=== PATIENT | female | born 1990 | race Hispanic/Latino ===

== ENCOUNTER 2018-02-09 07:43 | Day surgery (SDC) | payer OTHER ==
[~2018-02-09 07:43] MED LIST: LIDOCAINE 1% MDV 20ML VIAL SQ
[2018-02-09] MEDS ORDERED: ROCURONIUM BROMIDE 50 MG/5 ML VIAL As Ordered (07:44)
[2018-02-09] MEDS ORDERED: ONDANSETRON 4MG/2ML VIAL (J2405) As Ordered (07:44)
[2018-02-09] MEDS ORDERED: MIDAZOLAM INJ 2 MG/2 ML VIAL (J2250) As Ordered (07:44)
[2018-02-09] MEDS ORDERED: KETOROLAC 60 MG/2 ML VIAL (J1885) As Ordered (07:44)
[2018-02-09] MEDS ORDERED: PROPOFOL 200 MG/20 ML VIAL As Ordered (07:44)
[2018-02-09] MEDS ORDERED: LIDOCAINE 2% INJ 100 MG/5 ML SDV (FOR ANES.) As Ordered (07:44)
[2018-02-09] MEDS ORDERED: dexameTHASONE 4 MG/ML 1ML VIAL (J1100) As Ordered (07:44)
[2018-02-09] MEDS ORDERED: fentaNYL 100 MCG/2 ML INJECTION (J3010) As Ordered (07:44)
[2018-02-09 08:09] LABS: HEMOGLOBIN 13.7 g/dl (12.0-15.5)
[2018-02-09] MEDS: LR 1,000 ML IV (08:10)
[2018-02-09 08:30] LABS: CONTROL LINE HCG INT CTR LINE PRESENT; HCG, SERUM QUALITATIVE NEGATIVE (NEGATIVE)
[2018-02-09] MEDS ORDERED: HYDROmorphone HCL 2 MG/ML 1ML VIAL (J1170) As Ordered (08:54)
[2018-02-09] MEDS ORDERED: GLYCOPYRROLATE INJ 0.2 MG/ML 2 ML VIAL As Ordered ×2 (09:08)
[2018-02-09] MEDS ORDERED: NEOSTIGMINE 10 MG/10 ML VIAL (J2710) As Ordered (09:08)
[2018-02-09] MEDS: BUPIVACAINE HCL 0.25% 30 ML VIAL As Ordered (09:12)
[2018-02-09] MEDS ORDERED: PERCOCET 5MG/325MG TAB PO (10:00)
[2018-02-09] MEDS ORDERED: LR 1,000 ML IV (10:00)
[2018-02-09] MEDS ORDERED: fentaNYL 100 MCG/2 ML INJECTION (J3010) IV (10:00)
[2018-02-09] MEDS ORDERED: ONDANSETRON 4MG/2ML VIAL (J2405) IV (10:00)
== END 2018-02-09 11:17 | disposition home or self-care (01) ==
LOC: M SDC 07:43
DX: Z30.2 Encounter for sterilization (principal); Z72.0 Tobacco use
CPT/HCPCS: 58661

== ENCOUNTER 2020-03-30 00:09 | Inpatient (IN) | payer OTHER ==
[~2020-03-30] VITALS: Ht 160 cm; Wt 75.1 kg
[~2020-03-30 00:09] MED LIST changes: +LEVORA PO; -LIDOCAINE 1% MDV 20ML VIAL SQ; +VITA-243 PO
[2020-03-30 03:14] LABS: HEMATOCRIT 39.1 % (36.0-47.0); HEMOGLOBIN 13.2 g/dl (12.0-15.5); MEAN CORPUSCULAR HEMOGLOBIN 34.7 pg (27.0-33.0); MEAN CORPUSCULAR HGB CONC 33.8 g/dl (32.0-36.5); MEAN CORPUSCULAR VOLUME 102.9 fl (80.0-96.0); PLATELET COUNT, AUTOMATED 175 10^3/uL (150-450); WHITE BLOOD COUNT 6.2 10^3/uL (4.0-10.0)
[2020-03-30 03:35] LABS: AMPHETAMINES LEVEL URINE NEGATIVE (NEGATIVE); BARBITURATES URINE NEGATIVE (NEGATIVE); BENZODIAZEPINES URINE NEGATIVE (NEGATIVE); CANNABINOIDS URINE NEGATIVE (NEGATIVE); COCAINE METABOLITE URINE NEGATIVE (NEGATIVE); METHADONE URINE NEGATIVE (NEGATIVE); OPIATES URINE NEGATIVE (NEGATIVE); PHENCYCLIDINE URINE NEGATIVE (NEGATIVE)
[2020-03-30 03:44] LABS: ACETAMINOPHEN LEVEL < 2.0 UG/ML (10.0-30.0); ALBUMIN 3.4 GM/DL (3.2-5.2); ALT/SGPT 38 U/L (12-78); BILIRUBIN,DIRECT 0.1 MG/DL (0.0-0.2); BILIRUBIN,TOTAL 0.2 MG/DL (0.2-1.0); BLOOD UREA NITROGEN 7 MG/DL (7-18); CARBON DIOXIDE LEVEL 26 MEQ/L (21-32); CHLORIDE LEVEL 111 MEQ/L (98-107); CREATININE FOR GFR 0.55 MG/DL (0.55-1.30); ETHYL ALCOHOL (ETHANOL) 0.295 % (0.000-0.010); GLOMERULAR FILTRATION RATE > 60.0 (>60); GLUCOSE, FASTING 83 MG/DL (70-100); POTASSIUM SERUM 3.7 MEQ/L (3.5-5.1); SODIUM LEVEL 145 MEQ/L (136-145); THYROID STIMULATING HORMONE 0.853 uIU/ML (0.358-3.740); TOTAL PROTEIN 6.7 GM/DL (6.4-8.2)
[2020-03-30] MEDS ORDERED: PROAAER10 INH (16:51)
[2020-03-30] MEDS ORDERED: MOM 30ML SUSPENSION UDC PO PRN (17:15)
[2020-03-30] MEDS ORDERED: LORazepam 2 MG TAB PO PRN (17:15)
[2020-03-30] MEDS ORDERED: ACETAMINOPHEN TAB 650MG DOSE (2X325MG) PO PRN (17:15)
[2020-03-30] MEDS: THIAMINE 100 MG TAB PO SCH (19:55)
[2020-03-30 21:10] VITALS: BP 135/73
[2020-03-30 22:00] VITALS: BP 135/73
[2020-03-30] MEDS: traZODone 50 MG TAB PO PRN (23:46)
[2020-03-31 06:47] VITALS: BP 147/89
[2020-03-31 06:54] VITALS: BP 147/89
[2020-03-31] MEDS: FLUoxetine 10 MG CAP PO SCH (09:00)
[2020-03-31] MEDS: THIAMINE 100 MG TAB PO SCH ×2 (10:03→22:09)
[2020-03-31] MEDS: FOLIC ACID 1 MG TAB PO SCH (10:03)
[2020-03-31] MEDS: MULTIVITAMINS/MINERALS THERAP 1 TAB PO SCH (10:03)
[2020-03-31] MEDS: NICOTINE 21MG/24HR 1 EA TRANSDERMAL TD SCH (10:05)
[2020-03-31 16:00] VITALS: BP 164/100
[2020-03-31] MEDS: IBUPROFEN 400 MG TAB PO PRN (16:56)
[2020-03-31 17:39] VITALS: BP 164/100
[2020-03-31] MEDS: LORazepam 1 MG TAB PO PRN (17:50)
[2020-03-31 18:36] LABS: HCG, SERUM QUALITATIVE NEGATIVE (NEGATIVE)
[2020-03-31 18:57] VITALS: BP 140/100
--- NOTE | 2020-03-31 21:02 | HPEPDOC ---
[facility] Medical History & Physical Date of Admission Mar 30, 2020 Date of Service: Mar 31, 2020 History and Physical CHIEF COMPLAINT: Unspecified depressive disorder HISTORY OF PRESENT ILLNESS: Patient is a 29-year-old female with anxiety and depression who is in the inpatient mental health unit for unspecified depressive disorder. She says that she had a fall a week and a half ago and injured her right fourth finger. She's been following with orthopedic surgery at [place]. Pain is unchanged. Otherwise she has chronic left wrist pain and right arm pain. Her only other concern was her period came early. Bleeding felt heavier than normal. Otherwise, denies fever or chills, lightheadedness or dizziness, chest pain, dyspnea, abdominal pain, or dysuria. PAST MEDICAL HISTORY: 1. Depression/anxiety 2. Asthma. PAST SURGICAL HISTORY: 1. Left wrist surgery 2. [place] tooth pulled. SOCIAL HISTORY: Tobacco use: Right smoker. Smoked for 15 years, about 5 cigarettes a day ETOH: Last alcohol drink was Illicit drug use: Denies FAMILY HISTORY: Father: Medical history unknown to patient Mother: History of high blood pressure, dyslipidemia, diabetes mellitus, depression, bipolar ALLERGIES: Please see below. REVIEW OF SYSTEMS: CONSTITUTIONAL: Denies any fever or chills. Denies lightheadedness or dizziness. ENT: Denies rhinorrhea. Denies sore throat. Denies dysphagia. RESPIRATORY: Denies shortness of breath. Denies cough. CARDIOVASCULAR: Denies chest pain. GASTROINTESTINAL: Denies abdominal pain. Denies diarrhea. Denies constipation GENITOURINARY: Denies dysuria. Reports early period CUTANEOUS: Denies rashes. MUSCULOSKELETAL: Reports pain in the right 4th finger, left wrist, and right arm. All chronic NEUROLOGICAL: Denies neuropathy. HOME MEDICATIONS: Please see below. PHYSICAL EXAMINATION: VITAL SIGNS: Temperature 98, pulse 62, respiratory rate 16, blood pressure 147/89, pulse oximetry 99 % on room air. GENERAL: Comfortable, in no apparent distress. HEENT: Head normocephalic/atraumatic, EOMI, sclera clear. NECK: Supple, no JVD. RESPIRATORY: Lungs clear to auscultation bilaterally, no rales, wheeze or rhonchi. CARDIOVASCULAR: Regular rate and rhythm. ABDOMEN: Soft, nontender, no guarding or rebound tenderness. Normal bowel sounds. MUSCLE SKELETAL: Muscle strength 5/5 in all extremities. NEUROLOGICAL: CN 312 grossly intact, no focal deficits noted. PSYCHOLOGICAL: Normal mood and affect LABORATORY DATA: See below. ASSESSMENT AND PLAN: 1. Unspecified depressive disorder Being managed in the inpatient mental health unit 2. Abnormal uterine bleeding Says that her period arrived early Beta hCG ordered Ordering ultrasound of uterus We'll follow CBC for 2 days and order coag studies for tomorrow morning Would recommend that she follow-up with [facility] outpatient 3. Traumatic injury to right fourth finger Occurred 1-1/2 weeks ago from a fall No change in pain Follows with orthopedic surgery at [facility] 4. Asthma Albuterol as needed Vital Signs Vital Signs Date Time Temp Pulse Resp B/P (MAP) Pulse Ox O2 Delivery O2 Flow Rate FiO2 03/31/20 18:57 72 140/100 (113) 03/31/20 17:39 97.2 16 03/31/20 06:47 99 Room Air Laboratory Data Labs 24H Laboratory Tests 2 03/31/20 17:40: Human Chorionic Gonadotropin, Qual NEGATIVE Home Medications Scheduled PRN Albuterol Sulfate (Proair Hfa) 8.5 Gm Hfa.aer.ad, 2 PUFF INH Q4H PRN for SOB/WHEEZING Allergies Coded Allergies: No Known Allergies (Unverified , 02/01/18) A-FIB/CHADSVASC A-FIB History Current/History of A-Fib/PAF?: No DAJUAN JENKINS DO Mar 31, 2020 21:02
[2020-03-31] MEDS: traZODone 50 MG TAB PO PRN (22:08)
[2020-03-31 22:20] VITALS: BP 149/93
[2020-04-01 06:00] VITALS: BP 135/85
[2020-04-01 07:14] LABS: MEAN CORPUSCULAR HEMOGLOBIN 34.7 pg (27.0-33.0); MEAN CORPUSCULAR HGB CONC 33.3 g/dl (32.0-36.5); PLATELET COUNT, AUTOMATED 196 10^3/uL (150-450); RED BLOOD COUNT 3.46 10^6/uL (4.00-5.40); WHITE BLOOD COUNT 5.2 10^3/uL (4.0-10.0)
[2020-04-01 07:26] LABS: INR 0.94; PROTHROMBIN TIME 12.8 SECONDS (12.5-14.3)
[2020-04-01] MEDS: THIAMINE 100 MG TAB PO SCH ×2 (10:03→21:16)
[2020-04-01] MEDS: FLUoxetine 10 MG CAP PO SCH (10:03)
[2020-04-01] MEDS: NICOTINE 21MG/24HR 1 EA TRANSDERMAL TD SCH (10:03)
[2020-04-01] MEDS: MULTIVITAMINS/MINERALS THERAP 1 TAB PO SCH (10:03)
[2020-04-01] MEDS: FOLIC ACID 1 MG TAB PO SCH (10:03)
--- NOTE | 2020-04-01 12:26 | REP ---
INDICATION: abnormal urterine bleeding COMPARISON: None. TECHNIQUE: Transabdominal pelvic ultrasound followed by transvaginal examination for better evaluation of the endometrium and adnexa with color Doppler evaluation of the ovaries. FINDINGS: Bladder is unremarkable and measures 5.2 x 2.1 x 3.0 cm. Normal anteverted uterus measures 8.4 x 3.8 x 5.1 cm. The endometrial complex measures 6.0 mm thickness. No discrete uterine or endometrial abnormalities are appreciated. Bilateral ovaries are normal in vascularity without evidence for torsion. Right ovary measures 3.3 x 1.7 x 2.9 cm; R I = 0.46. Left ovary measures 3.6 x 2.6 x 2.9 cm and includes 2.7 cm septated likely physiologic cyst/dominant follicle; R I = 0.40. No pelvic fluid or adnexal mass lesion. IMPRESSION: 1. Normal uterus and right ovary. 2. 2.7 cm complex cystic left ovarian lesion likely representing physiologic cyst. Consider re-evaluation in 4-6 weeks if the patient remains symptomatic. <Electronically signed by Blair Valles > 04/01/20 0554
[2020-04-01 12:34] LABS: APPEARANCE, URINE CLOUDY (CLEAR); BACTERIA, URINE AUTO NEGATIVE (NEGATIVE); BILIRUBIN, URINE AUTO NEGATIVE (NEGATIVE); BLOOD, URINE BLOOD 2+ (NEGATIVE); COLOR, URINE AMBER (YELLOW); GLUCOSE, URINE (UA) AUTO NEGATIVE (NEGATIVE); KETONE, URINE AUTO NEGATIVE (NEGATIVE); LEUKOCYTE ESTERASE, URINE AUTO 1+ (NEGATIVE); MUCUS, URINE SMALL (NEGATIVE); NITRITE, URINE AUTO NEGATIVE (NEGATIVE); PROTEIN, URINE AUTO NEGATIVE (NEGATIVE); RBC, URINE AUTO 2 /HPF (0-3); SPECIFIC GRAVITY URINE AUTO 1.019 (1.002-1.035); SQUAMOUS EPITHELIAL CELL UR AU 21 /HPF (0-6); UROBILINOGEN, URINE AUTO 0.2 mg/dL (0.0-2.0); WBC, URINE AUTO 6 /HPF (0-3)
[2020-04-01] MEDS: IBUPROFEN 400 MG TAB PO PRN (13:09)
[2020-04-01] MEDS: LORazepam 1 MG TAB PO PRN ×2 (13:09→18:32)
[2020-04-01 18:24] VITALS: BP 164/106
[2020-04-01 18:29] VITALS: BP 164/106
[2020-04-01 20:40] VITALS: BP 146/98
[2020-04-01] MEDS: traZODone 50 MG TAB PO PRN (21:16)
[2020-04-01 22:00] VITALS: BP 146/98
[2020-04-02 06:54] VITALS: BP 138/84
[2020-04-02 07:27] LABS: HEMATOCRIT 36.3 % (36.0-47.0); HEMOGLOBIN 12.1 g/dl (12.0-15.5); MEAN CORPUSCULAR HEMOGLOBIN 35.1 pg (27.0-33.0); MEAN CORPUSCULAR HGB CONC 33.3 g/dl (32.0-36.5); MEAN CORPUSCULAR VOLUME 105.2 fl (80.0-96.0); PLATELET COUNT, AUTOMATED 226 10^3/uL (150-450); RED BLOOD COUNT 3.45 10^6/uL (4.00-5.40); WHITE BLOOD COUNT 6.2 10^3/uL (4.0-10.0)
[2020-04-02] MEDS: NICOTINE 21MG/24HR 1 EA TRANSDERMAL TD SCH (09:36)
[2020-04-02] MEDS: FLUoxetine 10 MG CAP PO SCH (09:37)
--- NOTE | 2020-04-02 09:47 | MHIPNPDOC ---
[facility] Progress Note Progress Note DATE OF SERVICE: 04/02/20 Subjective HPI: Abril presents today for follow-up, she has been reporting that she has been feeling less down and has been engaging more in groups over the weekend. MEDICATIONS: Patient reports that she feels the Prozac validates her feelings of depression and loss. SOCIAL HISTORY - SUBSTANCE USE: Patient is consistently focused that she is not an alcoholic. Objective Appearance: Appears to be stated age. Well nourished. Hygiene - Fair. Behavior: Mildly irritable. Cooperative with good eye contact. Engaged. Speech: Normal rate. Spontaneous and Fluid. Normal volume. Thought Content: No thoughts of self harm. No evidence of suicidal ideation. No evidence of aggressive or homicidal ideation. No evidence of delusions. Judgement: Poor - Fair. Insight: Poor - Fair. Assessment F33.9 Major depressive disorder, recurrent, unspecified Plan Continue Prozac, will attempt to convert to voluntary. Appears the patient is ambivalent about going to long-term care despite her statements. See about chain of command discussing their concerns as they are interested in her going to such a long-term treatment facility, given her significant history. Vital Signs Vital Signs Date Time Temp Pulse Resp B/P (MAP) Pulse Ox O2 Delivery O2 Flow Rate FiO2 04/02/20 09:37 68 138/86 04/02/20 06:54 97.8 18 04/01/20 18:29 100 Room Air Laboratory Data 24H Labs Laboratory Tests 2 04/01/20 12:00: Urine Color SHANT, Urine Appearance CLOUDYH, Urine pH 6.0, Urine Specific [place] 1.019, Urine Protein NEGATIVE, Urine Glucose (Auto)(UA) NEGATIVE, Urine Ketones (Auto) NEGATIVE, Urine Blood 2+H, Urine Nitrite NEGATIVE, Urine Bilirubin NEGATIVE, Urine Urobilinogen 0.2, Urine Leukocyte Esterase (Auto) 1+H, Urine WBC (Auto) 6H, Urine RBC (Auto) 2, Urine Hyaline Casts (Auto) 0, Urine Bacteria (Auto) NEGATIVE, Urine Squamous Epithelial Cells 21, Urine Mucus (Auto) SMALL, Urine Sperm (Auto) 04/02/20 07:07: Nucleated Red Blood Cells % (auto) 0.0 CBC/BMP Laboratory Tests 04/02/20 07:07 Current Medications Current Medications Medications (Trade) Dose Ordered Sig/Zina Route PRN Reason Start Time Stop Time Status Last Admin Dose Admin Acetaminophen (Tylenol Tab) 650 mg Q6HP PRN PO HEADACHE or DISCOMFORT 03/30/20 17:15 Albuterol Sulfate (Proventil, Ventolin Hfa) 2 puff Q4H PRN INH SOB/WHEEZING 03/30/20 17:15 Amlodipine Besylate (Norvasc) 2.5 mg DAILY PO 04/01/20 18:30 04/02/20 09:37 Fluoxetine HCl (PROzac) 10 mg DAILY PO 03/31/20 09:00 04/02/20 09:37 Folic Acid (Folic Acid) 1 mg DAILY PO 03/31/20 09:00 04/02/20 05:27 DC 04/01/20 10:03 Home Med (Med Rec Complete!) ASDIRECTED XX 03/30/20 17:00 03/30/20 16:59 DC Ibuprofen (Advil) 400 mg Q6HP PRN PO PAIN 03/30/20 17:15 04/01/20 13:09 Lorazepam (Ativan) 1 mg Q4HP PRN PO ANXIETY 03/31/20 17:30 04/01/20 18:32 Lorazepam (Ativan) 2 mg ASDIRECTED PRN PO SEE PROTOCOL 03/30/20 17:15 Cancel Magnesium Hydroxide (Milk Of Magnesia) 30 ml DAILYPRN PRN PO CONSTIPATION 03/30/20 17:15 Multivitamins (Theragram-M) 1 tab DAILY PO 03/31/20 09:00 04/02/20 05:27 DC 04/01/20 10:03 Nicotine (Nicoderm Cq 21mg) 1 patch DAILY TD 03/31/20 09:00 04/02/20 09:36 Thiamine HCl (Thiamine HCl) 100 mg BID PO 03/30/20 18:00 04/02/20 05:27 DC 04/01/20 21:16 Trazodone HCl (Desyrel) 50 mg QHSP PRN PO INSOMNIA 03/30/20 17:15 04/01/20 21:16 Allergies Coded Allergies: No Known Allergies (Unverified , 02/01/18) MARY ANNE LOPEZ DO Apr 02, 2020 09:47
[2020-04-02] MEDS: ALBUTEROL 90 MCG/ACT 8GM HFA INHALER INH PRN ×2 (11:48→21:17)
--- NOTE | 2020-04-02 12:32 | MHIPN ---
DATE: 04/01/2020 VITAL SIGNS: Blood pressure 135/85, pulse 65, temperature 98.3. CHIEF COMPLAINT: Says feels better. SUBJECTIVE: Seen for followup. Indicates feels better, somewhat less anxious, though had a difficult conversation with her sister. She says she has had better sleep, but felt a bit drowsy when she woke up today. Had used trazodone last night. MENTAL STATUS EXAMINATION: Neat, cooperative, no agitation, no psychomotor retardation, coherent, affect is fairly broad. Currently denies any suicidal thoughts or intents, no homicidal ideas or intents. No evidence of psychosis. Cognition grossly intact. Judgment is somewhat improved, insight fair. ASSESSMENT: Other specified depressive disorder. PLAN: Continue current care, observations, has just been started on Prozac. Says used medicine when she was seen at [facility] at some point, for a brief while, made her drowsy, thinks it may have been lorazepam. I would suggest obtaining collateral information. Involve patient in activities in the unit. Consider discharge shortly. Further recommendations will be made depending on the clinical picture. BEATRICE
[2020-04-02] MEDS: LORazepam 1 MG TAB PO PRN (14:21)
[2020-04-02 16:55] VITALS: BP 140/81
[2020-04-02] MEDS: traZODone 50 MG TAB PO PRN (21:16)
[2020-04-02] MEDS: IBUPROFEN 400 MG TAB PO PRN (21:16)
[2020-04-03 06:40] VITALS: BP 142/86
[2020-04-03] MEDS: NICOTINE 21MG/24HR 1 EA TRANSDERMAL TD SCH (08:49)
[2020-04-03] MEDS: FLUoxetine 10 MG CAP PO SCH (08:49)
[2020-04-03] MEDS: LORazepam 1 MG TAB PO PRN ×2 (12:13→21:36)
--- NOTE | 2020-04-03 13:25 | MHHPE ---
DATE: 03/30/2020 VITAL SIGNS: Blood pressure 140/100, pulse 72, temperature 97.2. CHIEF COMPLAINT: Feels stressed. SUBJECTIVE: She is 29 years old. She is active duty in the . Has two children who are with her ex-partner. She has another ex-partner elsewhere, who she was talking to, the patient says she was increasingly distressed, had been drinking as well, and had a knife, says was thinking of hurting herself, but does not think that she would have wanted to kill herself, the person she was talking to informed the police, and the patient was brought here. Says has not been doing well for the last several months, and she has been struggling, feels it is more difficult doing her work, though she manages, is in supplies, says her concentration is good, works long hours, and when home, may take a little alcohol, and then watches television and goes to bed. Says repeats that, but has been having a hard time increasingly, with poor motivation, feels depressed a fair amount of the time, anxious as well, with fluctuating appetite, generally good. Denies has been suicidal. Says stressed when ex-partner and children were here, earlier this year, but has not seen them in quite a while, is in contact with them regularly. PAST PSYCHIATRIC HISTORY: Is seen at [facility], says was on medication a brief while, but none currently. No history consistent with hypomania nor salima. No history consistent with psychosis nor with any posttraumatic stress disorder. SUBSTANCE ABUSE HISTORY: Says takes alcohol fairly regularly, but does not think that it is excessive. SOCIAL HISTORY: As indicated above, is active duty. Has two children, who are with her ex-. MENTAL STATUS EXAMINATION: She is seen in the presence of staff. She is neat, cooperative, no agitation, no psychomotor retardation, she is coherent. Affect is restricted but reactive. There is no evidence of any psychosis. Denies any active suicidal thoughts or intents at present, no homicidal ideas or intents. Cognition grossly intact. Her judgment is somewhat compromised, as is insight. ASSESSMENT: Unspecified depressive disorder. Rule out major depressive disorder. Being away from children. Limited social supports. PLAN: She is admitted to the inpatient psychiatry unit and placed on relevant precautions, and she will receive a medicine consult if indicated. After discussion of the risks, benefits, drawbacks, we will look at starting an antidepressant, start her on Prozac at 10 mg daily, titrate it upwards, as indicated. Will encourage her being involved in individual, group, and milieu therapy, and will discharge her with followup once she is stable. Will monitor for withdrawal symptoms. She will followup at [facility] once she is discharged. Further recommendations will be made depending on the clinical picture. The assessment took 40 minutes. BEATRICE
--- NOTE | 2020-04-03 13:30 | MHIPNPDOC ---
[facility] Progress Note Progress Note DATE OF SERVICE: 04/03/20 Subjective HPI: Julieth presents today for a mental health examine and was seen in the coloring room. She reports she feels fine. Patient is generally guarded and unengaged in the interview. She was primarily focused on trying to give the longest past that weve ever given to someone so that she may spend time with her girlfriend. She still seems to demonstrate little understanding of the significance of her behavior and actions that had brought her to the hospital. MEDICATIONS: Patient reports no side effects from her medications at this time. Objective Behavior: Unegaged. Guarded. Affect: Mildly dysthymic. Thought Content: No evidence of aggressive or homicidal ideation. No evidence of suicidal ideation. No thoughts of self harm. No evidence of delusions. Judgement: Poor. Insight: Poor. Assessment F33.8 Other recurrent depressive disorders F10.94 Alcohol use, unspecified with alcohol-induced mood disorder F60.3 Borderline personality disorder Plan Continue Prozac 10 mg daily. Will triage for terminal makeup operator as it would be appropriate for her at this time. Will hold boundaries to constraint pass rather than allowing patient to have as long as she would like as it seems that she primarily is pushing on boundaries. Vital Signs Vital Signs Date Time Temp Pulse Resp B/P (MAP) Pulse Ox O2 Delivery O2 Flow Rate FiO2 04/03/20 08:50 82 136/78 04/03/20 06:40 98.1 18 04/01/20 18:29 100 Room Air Current Medications Current Medications Medications (Trade) Dose Ordered Sig/Zina Route PRN Reason Start Time Stop Time Status Last Admin Dose Admin Acetaminophen (Tylenol Tab) 650 mg Q6HP PRN PO HEADACHE or DISCOMFORT 03/30/20 17:15 Albuterol Sulfate (Proventil, Ventolin Hfa) 2 puff Q4H PRN INH SOB/WHEEZING 03/30/20 17:15 04/02/20 21:17 Amlodipine Besylate (Norvasc) 2.5 mg DAILY PO 04/01/20 18:30 04/03/20 08:50 Fluoxetine HCl (PROzac) 10 mg DAILY PO 03/31/20 09:00 04/03/20 08:49 Folic Acid (Folic Acid) 1 mg DAILY PO 03/31/20 09:00 04/02/20 05:27 DC 04/01/20 10:03 Home Med (Med Rec Complete!) ASDIRECTED XX 03/30/20 17:00 03/30/20 16:59 DC Ibuprofen (Advil) 400 mg Q6HP PRN PO PAIN 03/30/20 17:15 04/02/20 21:16 Lorazepam (Ativan) 1 mg Q4HP PRN PO ANXIETY 03/31/20 17:30 04/03/20 12:13 Lorazepam (Ativan) 2 mg ASDIRECTED PRN PO SEE PROTOCOL 03/30/20 17:15 Cancel Magnesium Hydroxide (Milk Of Magnesia) 30 ml DAILYPRN PRN PO CONSTIPATION 03/30/20 17:15 Multivitamins (Theragram-M) 1 tab DAILY PO 03/31/20 09:00 04/02/20 05:27 DC 04/01/20 10:03 Nicotine (Nicoderm Cq 21mg) 1 patch DAILY TD 03/31/20 09:00 04/03/20 08:49 Thiamine HCl (Thiamine HCl) 100 mg BID PO 03/30/20 18:00 04/02/20 05:27 DC 04/01/20 21:16 Trazodone HCl (Desyrel) 50 mg QHSP PRN PO INSOMNIA 03/30/20 17:15 04/02/20 21:16 Allergies Coded Allergies: No Known Allergies (Unverified , 02/01/18) MARY ANNE LOPEZ DO Apr 03, 2020 13:29
[2020-04-03 16:28] VITALS: BP 140/92
[2020-04-03] MEDS: traZODone 50 MG TAB PO PRN (21:36)
[2020-04-04 06:41] VITALS: BP 142/75
[2020-04-04] MEDS: NICOTINE 21MG/24HR 1 EA TRANSDERMAL TD SCH (09:07)
[2020-04-04] MEDS: FLUoxetine 10 MG CAP PO SCH (09:08)
--- NOTE | 2020-04-04 10:23 | MHIPNPDOC ---
[facility] Progress Note Progress Note DATE OF SERVICE: 04/04/20 Subjective HPI: Julieth is met with today and reports that she is doing much better and feeling improved on the Prozac. Patient is saying that she is finding everything quite helpful. She is notably less irritable and much more engaged and pleasant. Patient states that she is open to long-term, feels that she will work with her chain of command to come up with a mutually agreeable plan. Objective Appearance: Well groomed. Well nourished. Appears to be stated age. Behavior: Engaged. Cooperative with good eye contact. Pleasant. Affect: Appropriate to context. Full range. Mood: Euthymic. Generally good. Appropriately reactive. Speech: Normal volume. Normal rate. Spontaneous and Fluid. Motor: No gross motor abnormalities. Cognition: Alert, Attentive, and Oriented to person, place, time. Memory: No formal testing. No gross abnormalities of short or alf memory noted during interview. Thought Form: Linear and goal directed. Thought Content: No evidence of aggressive or homicidal ideation. No thoughts of self harm. No evidence of suicidal ideation. No evidence of delusions. Perception: No perceptual abnormalities noted. Judgement: Intact as evidenced by decision making in the recent past. Insight: Good insight into symptoms and treatment options. Assessment F32.89 Other specified depressive episodes F10.99 Alcohol use, unspecified with unspecified alcohol-induced disorder Plan Continue Prozac 10 mg. Patient potentially could be discharged, well see if she might just be able to discharge before. Vital Signs Vital Signs Date Time Temp Pulse Resp B/P (MAP) Pulse Ox O2 Delivery O2 Flow Rate FiO2 04/04/20 09:08 87 125/83 04/04/20 06:41 97.9 16 04/01/20 18:29 100 Room Air Current Medications Current Medications Medications (Trade) Dose Ordered Sig/Zina Route PRN Reason Start Time Stop Time Status Last Admin Dose Admin Acetaminophen (Tylenol Tab) 650 mg Q6HP PRN PO HEADACHE or DISCOMFORT 03/30/20 17:15 Albuterol Sulfate (Proventil, Ventolin Hfa) 2 puff Q4H PRN INH SOB/WHEEZING 03/30/20 17:15 04/02/20 21:17 Amlodipine Besylate (Norvasc) 2.5 mg DAILY PO 04/01/20 18:30 04/04/20 09:08 Fluoxetine HCl (PROzac) 10 mg DAILY PO 03/31/20 09:00 04/04/20 09:08 Folic Acid (Folic Acid) 1 mg DAILY PO 03/31/20 09:00 04/02/20 05:27 DC 04/01/20 10:03 Home Med (Med Rec Complete!) ASDIRECTED XX 03/30/20 17:00 03/30/20 16:59 DC Ibuprofen (Advil) 400 mg Q6HP PRN PO PAIN 03/30/20 17:15 04/02/20 21:16 Lorazepam (Ativan) 1 mg Q4HP PRN PO ANXIETY 03/31/20 17:30 04/03/20 21:36 Lorazepam (Ativan) 2 mg ASDIRECTED PRN PO SEE PROTOCOL 03/30/20 17:15 Cancel Magnesium Hydroxide (Milk Of Magnesia) 30 ml DAILYPRN PRN PO CONSTIPATION 03/30/20 17:15 Multivitamins (Theragram-M) 1 tab DAILY PO 03/31/20 09:00 04/02/20 05:27 DC 04/01/20 10:03 Nicotine (Nicoderm Cq 21mg) 1 patch DAILY TD 03/31/20 09:00 04/04/20 09:07 Thiamine HCl (Thiamine HCl) 100 mg BID PO 03/30/20 18:00 04/02/20 05:27 DC 04/01/20 21:16 Trazodone HCl (Desyrel) 50 mg QHSP PRN PO INSOMNIA 03/30/20 17:15 04/03/20 21:36 Allergies Coded Allergies: No Known Allergies (Unverified , 02/01/18) MARY ANNE LOPEZ DO Apr 04, 2020 10:23
[2020-04-04] MEDS: LORazepam 1 MG TAB PO PRN (12:09)
[2020-04-04] MEDS: ALBUTEROL 90 MCG/ACT 8GM HFA INHALER INH PRN (12:09)
[2020-04-04] MEDS: IBUPROFEN 400 MG TAB PO PRN (12:12)
[2020-04-04 16:29] VITALS: BP 137/84
[2020-04-04] MEDS: traZODone 50 MG TAB PO PRN (21:36)
[2020-04-05 06:53] VITALS: BP 130/77
[2020-04-05] MEDS: FLUoxetine 10 MG CAP PO SCH (09:23)
[2020-04-05] MEDS: NICOTINE 21MG/24HR 1 EA TRANSDERMAL TD SCH (09:24)
--- NOTE | 2020-04-05 11:15 | MHIPNPDOC ---
[facility] Progress Note Progress Note DATE OF SERVICE: 04/05/20 Subjective HPI: Patient has met with today. She reports that she wants to be discharged. Discussed with her at the current plan is for her to be escorted on a pass prior to going. She reports that she's feeling much better in the Prozac is quite helpful. Discussed with her at that if her chain of command is open, to monitoring her until she leaves on Thursday morning, that this would be a minimal, but she would need to have them get in contact with a discharge plan to arrange for such a thing. Objective Appearance: Appears to be stated age. Well groomed. Well nourished. Affect: Full range. Appropriate to context. Mood: Not irritable. Agitated. Speech: Normal rate. Spontaneous and Fluid. Normal volume. Cognition: Alert, Attentive, and Oriented to person, place, time. Thought Form: Linear and goal directed. Thought Content: No evidence of aggressive or homicidal ideation. No evidence of delusions. No thoughts of self harm. No evidence of suicidal ideation. Judgement: Poor to fair. Insight: Poor to fair. Assessment F33.8 Other recurrent depressive disorders F10.10 Alcohol abuse, uncomplicated F60.3 Borderline personality disorder Plan Continue Prozac as of current. Will likely either discharge or pass tomorrow depending on whether she is able to get a hold of a chain of command and have them confirm whether this is something they're willing to do. She just had significant splitting and thus, it's likely she could be attempting to get out early in order to drink alcohol prior to going to rehab. Will attempt to judiciously monitor . Vital Signs Vital Signs Date Time Temp Pulse Resp B/P (MAP) Pulse Ox O2 Delivery O2 Flow Rate FiO2 04/05/20 06:53 98.1 69 14 130/77 (94) 99 Room Air Current Medications Current Medications Medications (Trade) Dose Ordered Sig/Zina Route PRN Reason Start Time Stop Time Status Last Admin Dose Admin Acetaminophen (Tylenol Tab) 650 mg Q6HP PRN PO HEADACHE or DISCOMFORT 03/30/20 17:15 Albuterol Sulfate (Proventil, Ventolin Hfa) 2 puff Q4H PRN INH SOB/WHEEZING 03/30/20 17:15 04/04/20 12:09 Amlodipine Besylate (Norvasc) 2.5 mg DAILY PO 10/25/20 18:30 04/05/20 09:24 Fluoxetine HCl (PROzac) 10 mg DAILY PO 03/31/20 09:00 04/05/20 09:23 Folic Acid (Folic Acid) 1 mg DAILY PO 03/31/20 09:00 04/02/20 05:27 DC 04/01/20 10:03 Home Med (Med Rec Complete!) ASDIRECTED XX 03/30/20 17:00 03/30/20 16:59 DC Ibuprofen (Advil) 400 mg Q6HP PRN PO PAIN 03/30/20 17:15 04/04/20 12:12 Lorazepam (Ativan) 1 mg Q4HP PRN PO ANXIETY 03/31/20 17:30 04/04/20 12:09 Lorazepam (Ativan) 2 mg ASDIRECTED PRN PO SEE PROTOCOL 03/30/20 17:15 Cancel Magnesium Hydroxide (Milk Of Magnesia) 30 ml DAILYPRN PRN PO CONSTIPATION 03/30/20 17:15 Multivitamins (Theragram-M) 1 tab DAILY PO 03/31/20 09:00 04/02/20 05:27 DC 04/01/20 10:03 Nicotine (Nicoderm Cq 21mg) 1 patch DAILY TD 03/31/20 09:00 04/05/20 09:24 Thiamine HCl (Thiamine HCl) 100 mg BID PO 03/30/20 18:00 04/02/20 05:27 DC 04/01/20 21:16 Trazodone HCl (Desyrel) 50 mg QHSP PRN PO INSOMNIA 03/30/20 17:15 04/04/20 21:36 Allergies Coded Allergies: No Known Allergies (Unverified , 02/01/18) MARY ANNE LOPEZ DO Apr 05, 2020 11:15
[2020-04-05] MEDS: ALBUTEROL 90 MCG/ACT 8GM HFA INHALER INH PRN (11:47)
[2020-04-05] MEDS: LORazepam 1 MG TAB PO PRN ×2 (11:47→22:20)
[2020-04-05] MEDS: traZODone 50 MG TAB PO PRN (22:20)
[2020-04-05] MEDS: IBUPROFEN 400 MG TAB PO PRN (22:21)
[2020-04-06 06:52] VITALS: BP 135/83
[2020-04-06 08:34] VITALS: BP 120/84
[2020-04-06] MEDS: FLUoxetine 10 MG CAP PO SCH (08:34)
[2020-04-06] MEDS: NICOTINE 21MG/24HR 1 EA TRANSDERMAL TD SCH (08:35)
[2020-04-06] MEDS: LORazepam 1 MG TAB PO PRN (09:47)
[2020-04-06] MEDS ORDERED: FLUO10CA16 PO (10:59)
[2020-04-06] MEDS ORDERED: AMLO25TA PO (10:59)
--- NOTE | 2020-04-06 11:04 | MHDSPDOC ---
[facility] Discharge Summary Discharge Summary DATE OF ADMISSION: Mar 30, 2020 at 17:07 DATE OF DISCHARGE: Apr 07, 2020 at 05:20 DISCHARGE DIAGNOSES: Adjustment disorder borderline personality disorder alcohol use disorder CONSULTANTS INVOLVED:[ None (basic hospitalist screening)] REASON FOR ADMISSION & TREATMENT AND PROGRESS ON THE UNIT : The patient was admitted and started on Prozac 10 mg daily for depression, she did wellness she did have significant splitting behaviors and attempted to be discharged after she agreed to go to long-term. The patient was observed where she was primarily behaviorally problematic but did make some improvements she was discharged conventional mortgage underwriter as planned with a escort to the long-term facility. DISCHARGE ASSESSMENT[improved] Legal status considerations: Voluntary transfer to long-term facility MENTAL STATUS EXAMINATION ON DISCHARGE: Not available as patient was discharged early in the morning, please see previous progress note PLAN/FOLLOWUP ARRANGEMENTS: follow up with long-term treatment The amount of time spent in the coordination of care for this patient was approximately 30 minutes. Vital Signs/I&Os Vital Signs Date Time Temp Pulse Resp B/P (MAP) Pulse Ox O2 Delivery O2 Flow Rate FiO2 04/06/20 08:34 89 120/84 04/06/20 06:52 97.1 14 99 Room Air Medications Scheduled Amlodipine Besylate (Amlodipine Besylate) 2.5 Mg Tablet, 2.5 MG PO DAILY for htn for 7 Days, #7 Fluoxetine Hcl (Fluoxetine HCl) 10 Mg Capsule, 10 MG PO DAILY for mood for 7 Days, #7 Scheduled PRN Albuterol Sulfate (Proair Hfa) 8.5 Gm Hfa.aer.ad, 2 PUFF INH Q4H PRN for SOB/WHEEZING, (Reported) Allergies Coded Allergies: No Known Allergies (Unverified , 02/01/18) MARY ANNE LOPEZ DO Apr 06, 2020 11:04
[2020-04-06] MEDS ORDERED: clonazePAM 1 MG TAB PO ONE ×2 (12:00→21:00)
[2020-04-06 16:04] VITALS: BP 137/87
[2020-04-06] MEDS: traZODone 50 MG TAB PO PRN (21:17)
== END 2020-04-07 05:20 | DRG 882 ==
LOC: M ED 00:09 → M ED INP 17:07 → M PSY 21:09
PROVIDERS: ADMIT Psychiatry & Neurology Addiction Medicine; ATTEND Psychiatry & Neurology Addiction Medicine
DX: F43.20 Adjustment disorder, unspecified (principal); F10.10 Alcohol abuse, uncomplicated; F60.3 Borderline personality disorder; J45.909 Unspecified asthma, uncomplicated

== ENCOUNTER 2020-05-21 19:32 | Inpatient (IN) | payer OTHER ==
[~2020-05-21] VITALS: Ht 160 cm; Wt 71.0 kg
[~2020-05-21 19:32] MED LIST changes: +AMLO25TA PO; +FLUO10CA16 PO; +PROAAER10 INH
[2020-05-21] MEDS ORDERED: diphenhydrAMINE 50MG/ML VIAL (J1200) IM ONE (20:15)
[2020-05-21] MEDS ORDERED: HALOPERIDOL 5MG/ML VIAL (J1630 PER 1) IM ONE (20:15)
[2020-05-21] MEDS ORDERED: LORazepam 2 MG/ML VIAL IM ONE (20:15)
[2020-05-21 20:16] LABS: HEMATOCRIT 39.9 % (36.0-47.0); HEMOGLOBIN 13.6 g/dl (12.0-15.5); MEAN CORPUSCULAR HEMOGLOBIN 32.2 pg (27.0-33.0); MEAN CORPUSCULAR HGB CONC 34.1 g/dl (32.0-36.5); MEAN CORPUSCULAR VOLUME 94.5 fl (80.0-96.0); PLATELET COUNT, AUTOMATED 214 10^3/uL (150-450); RED BLOOD COUNT 4.22 10^6/uL (4.00-5.40); WHITE BLOOD COUNT 6.1 10^3/uL (4.0-10.0)
[2020-05-21 20:46] LABS: HCG, SERUM QUALITATIVE NEGATIVE (NEGATIVE)
[2020-05-21 20:52] LABS: ACETAMINOPHEN LEVEL < 2.0 UG/ML (10.0-30.0); ALT/SGPT 24 U/L (12-78); BILIRUBIN,DIRECT 0.2 MG/DL (0.0-0.2); BILIRUBIN,TOTAL 0.3 MG/DL (0.2-1.0); BLOOD UREA NITROGEN 9 MG/DL (7-18); CALCIUM LEVEL 8.8 MG/DL (8.5-10.1); CARBON DIOXIDE LEVEL 22 MEQ/L (21-32); CHLORIDE LEVEL 110 MEQ/L (98-107); ETHYL ALCOHOL (ETHANOL) 0.377 % (0.000-0.010); GLOMERULAR FILTRATION RATE > 60.0 (>60); GLUCOSE, FASTING 81 MG/DL (70-100); POTASSIUM SERUM 3.3 MEQ/L (3.5-5.1); SALICYLATE LEVEL 3.4 MG/DL (5.0-30.0); SODIUM LEVEL 145 MEQ/L (136-145); THYROID STIMULATING HORMONE 0.486 uIU/ML (0.358-3.740); TOTAL PROTEIN 7.3 GM/DL (6.4-8.2)
[2020-05-22 00:13] LABS: AMPHETAMINES LEVEL URINE NEGATIVE (NEGATIVE); BARBITURATES URINE NEGATIVE (NEGATIVE); BENZODIAZEPINES URINE NEGATIVE (NEGATIVE); CANNABINOIDS URINE NEGATIVE (NEGATIVE); COCAINE METABOLITE URINE NEGATIVE (NEGATIVE); METHADONE URINE NEGATIVE (NEGATIVE); OPIATES URINE NEGATIVE (NEGATIVE); PHENCYCLIDINE URINE NEGATIVE (NEGATIVE)
[2020-05-22] MEDS ORDERED: LORazepam 2 MG TAB PO PRN ×2 (06:15→17:45)
[2020-05-22] MEDS: THIAMINE 100 MG TAB PO SCH ×2 (06:44→10:24)
[2020-05-22] MEDS ORDERED: FLUoxetine 10 MG CAP PO ONE (07:30)
[2020-05-22] MEDS: MULTIVITAMINS/MINERALS THERAP 1 TAB PO SCH (10:24)
[2020-05-22] MEDS: FOLIC ACID 1 MG TAB PO SCH (10:24)
[2020-05-22] MEDS ORDERED: TRAZ-252 PO (12:47)
[2020-05-22] MEDS ORDERED: FLUO10CA16 PO (12:47)
[2020-05-22] MEDS ORDERED: PRAZ1CAP PO (12:47)
[2020-05-22 13:44] LABS: RSV AMPLIFICATION NEGATIVE (NEGATIVE)
[2020-05-22] MEDS ORDERED: ACETAMINOPHEN TAB 650MG DOSE (2X325MG) PO PRN (17:45)
[2020-05-22] MEDS ORDERED: MAALOX 30 ML SUSP *UDC PO PRN (17:45)
[2020-05-22] MEDS ORDERED: MOM 30ML SUSPENSION UDC PO PRN (17:45)
[2020-05-22] MEDS ORDERED: THIAMINE 100 MG TAB PO SCH (18:00)
[2020-05-22 22:08] VITALS: BP 142/94
[2020-05-23 06:52] VITALS: BP 142/94
[2020-05-23] MEDS: FOLIC ACID 1 MG TAB PO SCH ×2 (09:00→10:03)
[2020-05-23] MEDS: MULTIVITAMINS/MINERALS THERAP 1 TAB PO SCH ×2 (09:00→10:03)
[2020-05-23] MEDS: THIAMINE 100 MG TAB PO SCH ×3 (09:00→21:08)
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
[2020-05-23] MEDS ORDERED: hydrOXYzine 50 MG TAB PO PRN (13:00)
[2020-05-23] MEDS: lamoTRIgine 25 MG TAB PO SCH (15:28)
[2020-05-23] MEDS: FLUoxetine 10 MG CAP PO SCH (15:28)
--- NOTE | 2020-05-23 18:33 | HPEPDOC ---
[facility] Medical History & Physical Date of Admission May 22, 2020 Date of Service: May 23, 2020 History and Physical CHIEF COMPLAINT: Suicidal ideation HISTORY OF PRESENT ILLNESS: Mrs. Blair is a 29 year old female with alcohol use disorder here with suicidal statements while intoxicated. She was [facility] to the [facility] on 05/22/2020. Today, she is feeling well. Denies fever, chest pain, dyspnea, abdominal pain, dysuria, or rash. She has not other complaints or requests PAST MEDICAL HISTORY: 1. Alcohol use disorder 2. Depression 3. Asthma PAST SURGICAL HISTORY: 1. Tubal ligation 2. [place] tooth extraction 3. Ganglion cyst on left wrist SOCIAL HISTORY: Tobacco use: Current smoker, smoked for 16 years, <1ppd ETOH: Daily. At least one drink a day, varies on how much Illicit drug use: Denies FAMILY HISTORY: Father: Does not know father Mother: HBP, Bipolar, asthma, DM ALLERGIES: Please see below. REVIEW OF SYSTEMS: CONSTITUTIONAL: Denies any fever or chills. Denies lightheadedness or dizziness. ENT: Denies rhinorrhea. Denies sore throat. Denies dysphagia. RESPIRATORY: Denies shortness of breath. Denies cough. CARDIOVASCULAR: Denies chest pain. Denies palpitations. GASTROINTESTINAL: Denies abdominal pain. Denies diarrhea. Denies constipation GENITOURINARY: Denies dysuria. CUTANEOUS: Denies rashes. MUSCULOSKELETAL: Denies muscle weakness. NEUROLOGICAL: Denies neuropathy. Denies paresthesias. HEMATOLOGIC/LYMPHATIC: Reports easy bruisability HOME MEDICATIONS: Please see below. PHYSICAL EXAMINATION: VITAL SIGNS: Temperature 98.3, pulse 66, respiratory rate 16, blood pressure 142/94, pulse oximetry 98 % on room air. GENERAL: Comfortable, in no apparent distress. HEENT: Head normocephalic/atraumatic, EOMI, sclera clear. NECK: Supple, no JVD. RESPIRATORY: Lungs clear to auscultation bilaterally, no rales, wheeze or r honchi. CARDIOVASCULAR: Regular rate and rhythm. ABDOMEN: Soft, nontender, no guarding or rebound tenderness. Normal bowel sound s. MUSCLE SKELETAL: Muscle strength 5/5 in all extremities. NEUROLOGICAL: CN 312 grossly intact, no focal deficits noted. PSYCHOLOGICAL: Normal mood and affect LABORATORY DATA: See below. ASSESSMENT and PLAN: 1. Suicidal ideation -Being managed in the inpatient mental health unit 2. Tobacco use disorder -Nicotine patch while inpatient 3. Alcohol use disorder -Last drink about 2 days ago -Agree with [facility] protocol, thiamine Thank you for consulting us, we will sign off at this time. Please do not hesit ate to reconsult us if there are any further questions or concerns Vital Signs Vital Signs Date Time Temp Pulse Resp B/P (MAP) Pulse Ox O2 Delivery O2 Flow Rate FiO2 05/23/20 06:52 66 142/94 05/22/20 22:08 98.3 16 Room Air 05/22/20 19:24 98 Home Medications Scheduled Fluoxetine Hcl (Fluoxetine HCl) 10 Mg Capsule, 10 MG PO DAILY Scheduled PRN Albuterol Sulfate (Proair Hfa) 8.5 Gm Hfa.aer.ad, 2 PUFF INH Q4H PRN for SOB/WHEEZING Prazosin Hcl (Prazosin HCl) 1 Mg Capsule, 1 MG PO QHS PRN for NIGHTMARES Trazodone HCl (Trazodone HCl) 50 Mg Tablet, 50 MG PO QHS PRN for SLEEP Allergies Coded Allergies: No Known Allergies (Unverified , 02/01/18) A-FIB/CHADSVASC A-FIB History Current/History of A-Fib/PAF?: No DAJUAN JENKINS DO May 23, 2020 18:33
[2020-05-23] MEDS: PRAZOSIN 1 MG CAP PO SCH (21:04)
[2020-05-23] MEDS: traZODone 50 MG TAB PO PRN (21:05)
[2020-05-23 21:40] VITALS: BP 138/90
[2020-05-24 06:00] VITALS: BP 140/96
[2020-05-24 06:31] VITALS: BP 140/96
[2020-05-24] MEDS: MULTIVITAMINS/MINERALS THERAP 1 TAB PO SCH (08:57)
[2020-05-24] MEDS: THIAMINE 100 MG TAB PO SCH (08:57)
[2020-05-24] MEDS: NICOTINE 21MG/24HR 1 EA TRANSDERMAL TD SCH (08:57)
[2020-05-24] MEDS: FLUoxetine 10 MG CAP PO SCH (08:57)
[2020-05-24] MEDS: FOLIC ACID 1 MG TAB PO SCH (08:57)
[2020-05-24] MEDS: lamoTRIgine 25 MG TAB PO SCH (08:57)
--- NOTE | 2020-05-24 12:15 | MHIPNPDOC ---
[facility] Progress Note Progress Note DATE OF SERVICE: 05/24/20 HISTORY: Patient is a 29 -year-old Single, Active Duty, , female, who was brought to [facility] after she made depressive and possible suicidal statements (she denies that she made any suicidal statements in the interview) to her chain of command. Patient was admitted to [facility] in March 2020 and subsequently transferred to [place], [place] for intensive inpatient services initiated by Gilberto Manrique. She recently returned from [place] and was in quarantine with "nothing but me and my thoughts which became more intrusive because I was drinking aging and with everything they were telling me, it was too much" VITAL SIGNS: See below. NEW TEST RESULTS: CURRENT MEDICATIONS: See below. MENTAL STATUS EXAMINATION: Patient is a 29 -year-old Single, Active Duty, , female, who was brought to [facility] after she made depressive and possible suicidal statements Speech: Is fluid, conversant, normal rate, tone and volume Language skills are intact Thought processes including: linear and goal oriented Thought content: denies depression and anxiety. Denies suicidal/homicidal ideation, planning or intent. Abstract reasoning, and computation: fair Description of associations: denies, none observed Description of abnormal or psychotic thoughts: denies, none observed. Judgment: fair Insight: fair Orientation: alert and oriented to person, place, time and situation Recent and remote memory: intact Attention span and concentration: good Language: expansive Fund of knowledge: average Mood: Euthymic Mood Affect: reactive, smiles on approach DIAGNOSES: Bipolar II Disorder, depressed Alcohol Use Disorder Nicotine Use Disorder ASSESSMENT: Patient reports no depression or anxiety. She denies that alcohol use is a problem. Patient continues to report her frustration about not seeing her daughters and feels that not being able to see them continues to frustrate her. She is compliant with treatment, social with peers, taking medications as ordered, attending groups and is forthcoming in individual sessions. Patient is alert and oriented, calm, cooperative and pleasant in the interview. She denies suicidality/homicidality, planning or intent. She is not manic, psychotic, delusional, bizarre or reporting auditory or visual hallucinatiosn. MANAGEMENT PLAN: Continue medications as ordered, no discharge orders planned for today. TIME SPENT: 25 minutes. Vital Signs Vital Signs Date Time Temp Pulse Resp B/P (MAP) Pulse Ox O2 Delivery O2 Flow Rate FiO2 05/24/20 06:31 98.2 78 18 140/96 (111) 100 Room Air Current Medications Current Medications Medications (Trade) Dose Ordered Sig/Zina Route PRN Reason Start Time Stop Time Status Last Admin Dose Admin Acetaminophen (Tylenol Tab) 650 mg Q6HP PRN PO HEADACHE or DISCOMFORT 05/22/20 17:45 Al Hydrox/Mg Hydrox/Simethicone (Mylanta) 30 ml Q4HP PRN PO HEARTBURN/INDIGESTION 05/22/20 17:45 Fluoxetine HCl (PROzac) 10 mg DAILY PO 05/23/20 09:00 05/24/20 08:57 Folic Acid (Folic Acid) 1 mg DAILY PO 05/22/20 09:00 05/23/20 10:10 DC 05/22/20 10:24 Folic Acid (Folic Acid) 1 mg DAILY PO 05/23/20 09:00 05/24/20 08:57 Home Med (Med Rec Complete!) ASDIRECTED XX 05/22/20 13:00 05/22/20 12:48 DC Hydroxyzine HCl (Atarax) 50 mg Q6HP PRN PO Anxiety 05/23/20 13:00 Lamotrigine (LaMICtal) 25 mg QAM PO 05/23/20 09:00 05/24/20 08:57 Lorazepam (Ativan) 2 mg ASDIRECTED PRN PO SEE PROTOCOL 05/22/20 06:15 05/23/20 10:10 DC Lorazepam (Ativan) 2 mg ASDIRECTED PRN PO SEE PROTOCOL 05/22/20 17:45 Magnesium Hydroxide (Milk Of Magnesia) 30 ml DAILYPRN PRN PO CONSTIPATION 05/22/20 17:45 Multivitamins (Theragram-M) 1 tab DAILY PO 05/22/20 09:00 05/23/20 10:10 DC 05/22/20 10:24 Multivitamins (Theragram-M) 1 tab DAILY PO 05/23/20 09:00 05/24/20 08:57 Nicotine (Nicoderm Cq 21mg) 1 patch DAILY TD 05/24/20 09:00 05/24/20 08:57 Prazosin HCl (Minipress) 2 mg QHS PO 05/23/20 21:00 05/23/20 21:04 Thiamine HCl (Thiamine HCl) 100 mg BID PO 05/22/20 06:14 05/23/20 13:01 DC 05/22/20 10:24 Thiamine HCl (Thiamine HCl) 100 mg BID PO 05/22/20 18:00 05/22/20 17:46 DC Thiamine HCl (Thiamine HCl) 100 mg BID PO 05/23/20 09:00 05/24/20 09:01 DC 05/24/20 08:57 Trazodone HCl (Desyrel) 50 mg QHSP PRN PO INSOMNIA 05/22/20 17:45 05/23/20 21:05 Allergies Coded Allergies: No Known Allergies (Unverified , 02/01/18) PAMELA LAMBERT NP May 24, 2020 12:15
[2020-05-24 16:41] VITALS: BP 132/86
[2020-05-24] MEDS: traZODone 50 MG TAB PO PRN (20:12)
[2020-05-24 20:15] VITALS: BP 144/92
[2020-05-24] MEDS: PRAZOSIN 1 MG CAP PO SCH (20:15)
[2020-05-25 06:55] VITALS: BP 118/82
[2020-05-25] MEDS: NICOTINE 21MG/24HR 1 EA TRANSDERMAL TD SCH (09:00)
--- NOTE | 2020-05-25 09:40 | MHIPNPDOC ---
[facility] Progress Note Progress Note DATE OF SERVICE: 05/25/20 HISTORY: Patient is a 29 -year-old Single, Active Duty, , female, who was brought to [facility] after she made depressive and possible suicidal statements (she denies that she made any suicidal statements in the interview) to her chain of [employer]. Patient was admitted to [facility] in March 2020 and subsequently transferred to [place], [place] for intensive inpatient services initiated by Gilberto Manrique. She recently returned from [place] and was in quarantine with "nothing but me and my thoughts which became more intrusive because I was drinking aging and with everything they were telling me, it was too much" VITAL SIGNS: See below. NEW TEST RESULTS: CURRENT MEDICATIONS: See below. MENTAL STATUS EXAMINATION: Patient is a 29 -year-old Single, Active Duty, , female, who was brought to [facility] after she made depressive and possible suicidal statements Speech: Is fluid, conversant, normal rate, tone and volume Language skills are intact Thought processes including: linear and goal oriented Thought content: denies depression and has anxiety due to not being allowed to be discharged today. Denies suicidal/homicidal ideation, planning or intent. Abstract reasoning, and computation: fair Description of associations: denies, none observed Description of abnormal or psychotic thoughts: denies, none observed. Judgment: fair Insight: fair Orientation: alert and oriented to person, place, time and situation Recent and remote memory: intact Attention span and concentration: good Language: expansive Fund of knowledge: average Mood: depressed mood, mildly labile Affect: flat, reactive DIAGNOSES: Bipolar II Disorder, depressed Alcohol Use Disorder Nicotine Use Disorder ASSESSMENT: Patient reports that she is not depressed but is anxious. She was told that she could not be discharged today, reporting that she does not know why she could not be discharged. States that she had no information about this. She continued to state that she was not notified that she would be detained ov er the weekend. Further in the conversation she states that [facility] wants her to go to another 28 day rehab and that afterwards she will be chaptered out. She is very upset at this time, wants to speak to [facility] or [facility] or Mental Health Legal Service. She states, "I can feel my Bipolar coming out." Reinforced with patient that her acting out is behavioral and not necessarily her Bipolar Symptoms. Encouraged patient to utilize her legal and aide processes and not act out. Encouraged her to maintain behaviors in order to not be reprimanded. She was tearful in the interview, stating that the Command was not seeing that she is only asking to see her children. States that she will comply but that her leave should not be "flagged." Cash, Assembly Machine Tender came into the interview to reinforce that her discharge is delayed due to [place]. MANAGEMENT PLAN: Continue medications as ordered, no discharge orders planned for today. Vital Signs Vital Signs Date Time Temp Pulse Resp B/P (MAP) Pulse Ox O2 Delivery O2 Flow Rate FiO2 05/25/20 06:55 97.9 88 16 118/82 (94) 98 Room Air Current Medications Current Medications Medications (Trade) Dose Ordered Sig/Zina Route PRN Reason Start Time Stop Time Status Last Admin Dose Admin Acetaminophen (Tylenol Tab) 650 mg Q6HP PRN PO HEADACHE or DISCOMFORT 05/22/20 17:45 Al Hydrox/Mg Hydrox/Simethicone (Mylanta) 30 ml Q4HP PRN PO HEARTBURN/INDIGESTION 05/22/20 17:45 Fluoxetine HCl (PROzac) 10 mg DAILY PO 05/23/20 09:00 05/24/20 08:57 Folic Acid (Folic Acid) 1 mg DAILY PO 05/22/20 09:00 05/23/20 10:10 DC 05/22/20 10:24 Folic Acid (Folic Acid) 1 mg DAILY PO 05/23/20 09:00 05/24/20 08:57 Home Med (Med Rec Complete!) ASDIRECTED XX 05/22/20 13:00 05/22/20 12:48 DC Hydroxyzine HCl (Atarax) 50 mg Q6HP PRN PO Anxiety 05/23/20 13:00 05/24/20 14:03 Lamotrigine (LaMICtal) 25 mg QAM PO 05/23/20 09:00 05/24/20 08:57 Lorazepam (Ativan) 2 mg ASDIRECTED PRN PO SEE PROTOCOL 05/22/20 06:15 05/23/20 10:10 DC Lorazepam (Ativan) 2 mg ASDIRECTED PRN PO SEE PROTOCOL 05/22/20 17:45 05/24/20 16:33 DC Magnesium Hydroxide (Milk Of Magnesia) 30 ml DAILYPRN PRN PO CONSTIPATION 05/22/20 17:45 Multivitamins (Theragram-M) 1 tab DAILY PO 05/22/20 09:00 05/23/20 10:10 DC 05/22/20 10:24 Multivitamins (Theragram-M) 1 tab DAILY PO 05/23/20 09:00 05/24/20 08:57 Nicotine (Nicoderm Cq 21mg) 1 patch DAILY TD 05/24/20 09:00 05/24/20 08:57 Prazosin HCl (Minipress) 2 mg QHS PO 05/23/20 21:00 05/24/20 20:15 Thiamine HCl (Thiamine HCl) 100 mg BID PO 05/22/20 06:14 05/23/20 13:01 DC 05/22/20 10:24 Thiamine HCl (Thiamine HCl) 100 mg BID PO 05/22/20 18:00 05/22/20 17:46 DC Thiamine HCl (Thiamine HCl) 100 mg BID PO 05/23/20 09:00 05/24/20 09:01 DC 05/24/20 08:57 Trazodone HCl (Desyrel) 50 mg QHSP PRN PO INSOMNIA 05/22/20 17:45 05/24/20 20:12 Allergies Coded Allergies: No Known Allergies (Unverified , 02/01/18) PAMELA LAMBERT NP May 25, 2020 09:40
[2020-05-25] MEDS: FLUoxetine 10 MG CAP PO SCH (09:47)
[2020-05-25] MEDS: MULTIVITAMINS/MINERALS THERAP 1 TAB PO SCH (09:47)
[2020-05-25] MEDS: FOLIC ACID 1 MG TAB PO SCH (09:47)
[2020-05-25] MEDS: lamoTRIgine 25 MG TAB PO SCH (09:47)
[2020-05-25] MEDS ORDERED: MINI1CAP PO (10:01)
[2020-05-25] MEDS ORDERED: TRAZ-252 PO (10:01)
[2020-05-25] MEDS ORDERED: FLUO10CA16 PO (10:01)
[2020-05-25] MEDS ORDERED: LAMI25TA PO (10:01)
--- NOTE | 2020-05-25 10:21 | MHDSPDOC ---
[facility] Discharge Summary Discharge Summary DATE OF ADMISSION: May 22, 2020 at 17:38 DATE OF DISCHARGE: May 25, 2020 1003 DISCHARGE DIAGNOSES: Bipolar II Disorder, depressed Alcohol Use Disorder Nicotine Use Disorder REASON FOR ADMISSION: Patient is a 29 -year-old Single, Active Duty, , female, who was brought to [facility] after she made depressive and possible suicidal statements (she denies that she made any suicidal statements in the interview) to her chain of command. Patient was admitted to [facility] in March 2020 and subsequently transferred to [place], [place] for intensive inpatient services initiated by [facility]. She recently returned from [place] and was in quarantine with "nothing but me and my thoughts which became more intrusive because I was drinking aging and with everything they were telling me, it was too much" CONSULTANTS INVOLVED: See Medical H + P by Hospitalist TREATMENT AND PROGRESS ON THE UNIT: Patient was admitted to the [facility] on a 9.39 legal status he was afforded the following treatment modalities: 1) Individual Therapy 2) Group Therapy 3) Medication Management 4) Milieu Therapy 5) Safe Environment HOSPITAL COURSE: : Patient was admitted to [facility] on a 9.39 legal status. She was brought to [facility] after making depressed statement and reportedly had made suicidal statement, which the patient vehemently denies. She states that she was admitted to [facility] in 2019 and was transferred to [place], [place] for 28 days of rehab. She then returned and was quarantined and states that she was denied leave to visit her daughters. She began drinking again. On interview today Patient reports that she is not depressed but is anxious. She was told that she could not be discharged today, reporting that she does not know why she could not be discharged. States that she had no information about this. She continued to state that she was not notified that she would be detained over the weekend. Further in the conversation she states that [facility] wants her to go to another 28 day rehab and that afterwards she will be chaptered out. She is very upset at this time, wants to speak to [facility] or [facility] or [facility]. She states, "I can feel my Bipolar coming out." Reinforced with patient that her acting out is behavioral and not necessarily her Bipolar Symptoms. Encouraged patient to utilize her legal and aide processes and not act out. Encouraged her to maintain behaviors in order to not be reprimanded. She was tearful in the interview, stating that the Command was not seeing that she is only asking to see her children. States that she will comply but that her leave should not be "flagged." DISCHARGE ASSESSMENT: Patient's nurse and the nurse ancillary services manager therapy discussed case with this provider. It is the decision of the treatment team to discharge the patient based on her normal mental status, her denial of suicidal or homicidal ideations and that she is not observed with any abnormal psychotic symptoms. S he denies and is not observed with paranoia, delusions, bizarre thinking, salima, AH/VH/TH, psychosis, ruminations, loose associations, labile mood or depression or anxiety that is so severe that warrants continued inpatient hospitalization. Patient did not have Alcohol Withdrawal Symptoms while hospitalized. Patient's mental status and documentation over the course of her hospitalization shows that she does not meet criteria for involuntary inpatient hospitalization and she declined a voluntary admission. Patient is well aware that her Chain of Command was requesting her to commit to another rehab and to stay over the weekend. She was also strongly encouraged to follow her Chain of Command and to adhere to their requests, commands and policies. Patient is encouraged to abstain from Alcohol and Drugs. Patient verbalized understanding but requesting discharge. At this time she meets criteria for discharge. MENTAL STATUS EXAMINATION ON DISCHARGE: Patient is a 29 -year-old Single, Active Duty, , female, who was brought to [facility] after she made depressive and possible suicidal statements (she denies that she made any suicidal statements in the interview) to her chain of command. Speech: Is fluid, conversant, normal rate, tone and volume Language skills are intact Thought processes including: linear and goal oriented Thought content: denies depression and anxiety. Denies suicidal/homicidal ideation, planning or intent. Abstract reasoning, and computation: fair Description of associations: denies, none observed Description of abnormal or psychotic thoughts: denies, none observed. Judgment: fair Insight: fair Orientation: alert and oriented to person, place, time and situation Recent and remote memory: intact Attention span and concentration: good Language: expansive Fund of knowledge: average Mood: Euthymic Mood Affect: reactive MEDICATIONS ON DISCHARGE: See Discharge Reconciliation PLAN/FOLLOWUP ARRANGEMENTS: Patient to follow up with [facility] The amount of time spent in the coordination of care for this patient was approximately 35 minutes. Vital Signs/I&Os Vital Signs Date Time Temp Pulse Resp B/P (MAP) Pulse Ox O2 Delivery O2 Flow Rate FiO2 05/25/20 06:55 97.9 88 16 118/82 (94) 98 Room Air Medications Scheduled Fluoxetine Hcl (Fluoxetine HCl) 10 Mg Capsule, 10 MG PO DAILY for Depression, #7 Lamotrigine (Lamictal) 25 Mg Tablet, 25 MG PO QAM for Mood Stabilizer, #7 Prazosin HCl (Minipress) 1 Mg Capsule, 2 MG PO QHS for Nightmares, #7 Scheduled PRN Albuterol Sulfate (Proair Hfa) 8.5 Gm Hfa.aer.ad, 2 PUFF INH Q4H PRN for SOB/WHEEZING, (Reported) Trazodone HCl (Trazodone HCl) 50 Mg Tablet, 50 MG PO QHS PRN for SLEEP, #7 Allergies Coded Allergies: No Known Allergies (Unverified , 02/01/18) PAMELA LAMBERT NP May 25, 2020 10:21
== END 2020-05-25 13:45 | disposition home or self-care (01) | DRG 885 ==
LOC: M ED 19:32 → M ED INP 05-22 17:38 → M PSY 05-22 22:00
PROVIDERS: ADMIT Psychiatry & Neurology Psychiatry; ATTEND Psychiatry & Neurology Psychiatry
DX: F31.81 Bipolar II disorder (principal); F10.10 Alcohol abuse, uncomplicated; F41.1 Generalized anxiety disorder; F17.200 Nicotine dependence, unspecified, uncomplicated; Z63.5 Disruption of family by separation and divorce; Z79.899 Other long term (current) drug therapy; Z20.828 Contact with and (suspected) exposure to other viral communicable diseases